=== PATIENT | male | born 1960 | race Caucasian/White ===

== ENCOUNTER 2020-03-19 07:29 | Day surgery (SDC) | payer BC, OTHER ==
[~2020-03-19 07:29] MED LIST: Lactated Ringers 1,000 ML IV SCH
[2020-03-19] MEDS ORDERED: Midazolam 1 MG/ML 2 ML SDV ONE (09:20)
[2020-03-19] MEDS ORDERED: Propofol 200 MG/20 ML SDV ONE (09:20)
[2020-03-19] MEDS ORDERED: fentaNYL 100 MCG/2 ML SDV ONE (09:20)
[2020-03-19 10:10] VITALS: BP 142/76; PULSE 62
--- NOTE | 2020-03-19 12:58 | OR ---
PREOPERATIVE DIAGNOSIS: Screening colonoscopy. POSTOPERATIVE DIAGNOSIS: Colon polyps. PROCEDURE PERFORMED: Total flexible colonoscopy. ANESTHESIA: MAC anesthesia. COMPLICATIONS: None. BLOOD LOSS: Minimal. FINDINGS: 1. Cecal polyp, 3 mm, cold snare. 2. Descending colon polyp, 3 mm, cold snare. START TIME: 0927 hours. CECUM TIME: 0933 hours. STOP TIME: 0952 hours. BOWEL PREPARATION: [place] class 3. INDICATIONS FOR PROCEDURE: Mr. Jones is a 59-year-old male, who is here for a routine screening colonoscopy. He tells me his last scope was 6 years ago. He cannot recall if he had polyps or not at that time. He denies any bloody or dark black stools. No family history of colon cancer. DETAILS OF PROCEDURE: After informed performed was obtained, the patient was placed in the left lateral decubitus position. MAC anesthesia was induced by Anesthesia colleagues. The endoscope incorporated with an Endocuff device was introduced into the rectum. It was advanced all the way to the cecum. The appendix and IC valve were photographed. It was then slowly withdrawn. No pathology other than what was mentioned in the above findings section was identified. A retroflexed view was obtained. The patient was awoken from MAC anesthesia by Anesthesia colleagues without incident. PATHOLOGY: A) Colon, cecum polyp Tubular adenoma B) Colon, descending polyp Tubular adenoma Recommend a repeat colonoscopy in 5 years. RKM: 03/19/2020 10:00:03 MODL: 03/19/2020 10:34:11 /[id number] MTDD
--- NOTE | 2020-03-27 11:08 | LETTER ---
03/26/2020 RE: OCTAVIO JONES : 1960 Octavio Jones [address] [place] [id number] Dear Mr. Jones: I am writing to inform you of your pathology results of your recent colonoscopy. You had 2 tubular adenomas. A tubular adenoma is a polyp that does not contain cancer, but it can become cancer which is why we removed them. You will need another screening colonoscopy in 5 years. Thank you.
== END 2020-03-19 10:40 | disposition home or self-care (01) ==
LOC: VM.SDS 07:29
PROVIDERS: ATTEND Student in an Organized Health Care Education/Training Program
DX: Z12.11 Encounter for screening for malignant neoplasm of colon (principal); Z11.59 Encounter for screening for other viral diseases; D12.0 Benign neoplasm of cecum; D12.4 Benign neoplasm of descending colon; I10 Essential (primary) hypertension; N52.9 Male erectile dysfunction, unspecified; E78.5 Hyperlipidemia, unspecified; E66.9 Obesity, unspecified; G47.33 Obstructive sleep apnea (adult) (pediatric); Z99.89 Dependence on other enabling machines and devices; Z79.899 Other long term (current) drug therapy; Z79.02 Long term (current) use of antithrombotics/antiplatelets; Z68.38 Body mass index [BMI] 38.0-38.9, adult; Z86.711 Personal history of pulmonary embolism; Z98.890 Other specified postprocedural states
CPT/HCPCS: 00812; 45385; 87635; J2250; J2704; J3010; J7120; U0002

== ENCOUNTER → 2025-07-25 | Day surgery (SDC) | payer MEDICARE, OTHER ==
[~2025-07-25] MED LIST changes: +Atropine 0.4 MG/ML SDV ONE; -Lactated Ringers 1,000 ML IV SCH; +Propofol 200 MG/20 ML SDV ONE; +ePHEDrine 50 MG/ML SDV ONE; +fentaNYL 100 MCG/2 ML SDV ONE
[2025-07-25] MEDS: Lactated Ringers 1,000 ML IV SCH (08:01)
[2025-07-25 10:54] VITALS: BP 132/76; PULSE 78
== END ==
LOC: VM.SDS 07:48
PROVIDERS: ATTEND Family Medicine
DX: K57.31 Diverticulosis of large intestine without perforation or abscess with bleeding (principal); I10 Essential (primary) hypertension; I25.10 Atherosclerotic heart disease of native coronary artery without angina pectoris; E78.00 Pure hypercholesterolemia, unspecified; E66.01 Morbid (severe) obesity due to excess calories; Z68.41 Body mass index [BMI] 40.0-44.9, adult; Z79.899 Other long term (current) drug therapy; Z86.0101 Personal history of adenomatous and serrated colon polyps
CPT/HCPCS: 00811; 45378; J0461; J2704; J3010; J7120; J3490